=== PATIENT | male | born 1975 | race Caucasian/White ===

== ENCOUNTER 2018-01-03 21:25 | Emergency (ER) | payer MEDICAID ==
--- NOTE | 2018-01-03 21:57 | EDPHY ---
H & P Time Seen by Provider: 01/03/18 21:38 HPI/ROS: HPI Med clearance for [facility]. 42-year-old male in the custody [employer]. Patient was assisted to the ground by [employer] during and arrest. He presents with complaint of right knee pain. He also states that he has a contusion over his right eye. [employer] police deny any loss of consciousness. He has been acting appropriate. No other history of trauma. ROS: Constitutional: No fever, no chills. No weakness. Eyes: No discharge. No changes in vision. ENT: No sore throat. No nasal congestion or rhinorrhea. Respiratory: No cough. No shortness of breath. Cardiac: No chest pain, no palpitations. Gastrointestinal: No abdominal pain, no vomiting, no diarrhea. Genitourinary: No hematuria. No dysuria or increased frequency with urination. Musculoskeletal: No back pain. As above. No myalgias or arthralgias. Skin: No rashes. Neurological: No headache. No focal weakness or altered sensation. Past medical history: Diabetes. Social history: Drinks alcohol. Denies IV drugs or street drugs. Denies smoking. As above. Physical Exam: General Appearance: Alert, no distress. Strong odor of alcohol on his breath. This patient is responding to questions appropriately and in full sentences. This patient appears well-hydrated and well-nourished. Head: Normocephalic atraumatic. Face: Facial bones are stable on palpation. He has a small contusion without laceration involving the right lateral brow ridge. No bony step-off or deformity noted on palpation of this area. Eyes: Pupils equal and round and reactive to light, no pallor or injection. No lid erythema or edema. ENT, Mouth: Mucous membranes moist. Dentition is intact. No malocclusion of the jaw. No tongue lacerations or abrasions. Pharynx is clear. The bilateral nasal canals are clear. No septal hematoma. Respiratory: There are no retractions, lungs are clear to auscultation with good air movement bilaterally. Chest wall is stable to AP and lateral palpation. Cardiovascular: Regular rate and rhythm. No murmur. Gastrointestinal: Abdomen is soft and nontender, no masses, bowel sounds normal. Neurological: Motor sensory function is intact. Cranial nerves are normal. Cerebellar function intact. Skin: Warm and dry, no rashes. No lacerations, abrasions or contusions. Musculoskeletal: Neck is supple and nontender. The trachea is midline. No midline cervical, thoracic, lumbar or sacral tenderness on palpation. No flank tenderness on palpation. Right knee exam: Stable to valgus and varus stress testing as well as anterior and posterior drawer testing. He has what appears to be a chronic bone spur involving the medial aspect of his proximal tibia. It is nontender on palpation. He states that it is new. This is not consistent with my exam. There is no bony step-off crepitus on palpation of this. No soft tissue edema, erythema, ecchymosis noted. Extremities are symmetrical, full range of motion. All joints in the bilateral upper and bilateral lower extremities range without pain or impingement. No tenderness on palpation of the long bones in the bilateral upper and bilateral lower extremities. Psychiatric: No agitation. No depression. Database: EKG: Imaging: Right knee x-ray series: Negative for acute fracture, subluxation, dislocation. Interpreted by me. Procedures: Emergency department course: Vital signs reviewed. I discussed the results of the patient's x-ray of his right knee with him. His examination is reassuring. I feel that significant traumatic injury is unlikely in this patient. Return to emergency department precautions were reviewed with the accompanying police officers. He was discharged to [facility] in good condition with them. Differential Diagnosis: The differential diagnosis on this patient includes but is not limited to periorbital contusion. Right knee fracture, subluxation, dislocation, significant ligamentous injury unlikely. This represents a partial list of diagnoses considered. These considerations are based on history, physical exam , past history, reassessment and diagnostic testing. Smoking Status: Heavy smoker Constitutional: Initial Vital Signs Temperature (C) 36.6 C 01/03/18 21:27 Heart Rate 127 H 01/03/18 21:27 Respiratory Rate 16 01/03/18 21:27 Blood Pressure 126/84 H 01/03/18 21:27 O2 Sat (%) 98 01/03/18 21:27 O2 Delivery Mode Room Air Allergies/Adverse Reactions: No Known Allergies Allergy (Unverified 01/03/18 21:30) Home Medications: Medication Instructions Recorded NK [No Known Home Meds] 01/03/18 Departure - Departure Disposition: Law Enforcement/Court/[facility] Clinical Impression: Alcohol intoxication, Contusion of right orbit Condition: Good Instructions: Alcohol Intoxication (ED), Contusion in Adults (ED) Additional Instructions: Read and follow provided instructions. Follow-up with your primary care physician in early next week for re-evaluation. Ibuprofen dosin mg every 6 hours with meals for the next 3 days only. Take only as needed for pain. Do not drink alcohol. Return to the emergency department for worsening pain, discoloration, swelling or other serious concerns. Referrals: NONE *PRIMARY CARE P,. [Primary Care Provider] - As per Instructions
[2018-01-03 22:45] VITALS: BP 134/74
== END 2018-01-03 22:44 ==
LOC: EEVIPCON 21:25
DX: S00.11XA Contusion of right eyelid and periocular area, initial encounter (principal); F10.129 Alcohol abuse with intoxication, unspecified; E11.9 Type 2 diabetes mellitus without complications; X58.XXXA Exposure to other specified factors, initial encounter